=== PATIENT | male | born 1970 | race Caucasian/White ===

== ENCOUNTER 2020-12-12 16:50 | Emergency (ER) | payer OTHER ==
[2020-12-12] MEDS ORDERED: HYDROmorphone 1 MG/ML Syringe IM ONE (17:09)
[2020-12-12] MEDS ORDERED: Cyclobenzaprine 10 MG Tab PO ONE (17:10)
[2020-12-12] MEDS ORDERED: Ketorolac 60 MG/2 ML SDV IM ONE (17:10)
--- NOTE | 2020-12-12 17:14 | EDM.PDOC ---
ED HPI GENERAL MEDICAL PROBLEM - General Chief Complaint: Back Pain or Injury Stated Complaint: BACK PAIN Time Seen by Provider: 12/12/20 16:55 Source of Information: Reports: Patient, Family History Limitations: Reports: No Limitations - History of Present Illness INITIAL COMMENTS - FREE TEXT/NARRATIVE: The patient presents with low back pain. He was golfing and getting into his cart and he developed severe lower back pain. This has happened before. He has no numbness but when he has a spasm he has weakness in his legs. He has no bowel or bladder problems. He has no fever, chills, cough, chest pain, or shortness of breath. Onset: Sudden Duration: Minutes: Location: Reports: Back Quality: Reports: Sharp Severity: Severe Improves with: Reports: Immobilization Worsens with: Reports: Movement Context: Denies: Trauma Associated Symptoms: Reports: No Other Symptoms Back Pain Score (Numeric/FACES): 10 - Related Data Allergies Allergy/AdvReac Type Severity Reaction Status Date / Time No Known Allergies Allergy Verified 12/12/20 17:01 Home Meds: Home Meds Cyclobenzaprine [Flexeril] 10 mg PO TID PRN #20 tab 12/12/20 [Rx] Hydrocodone/Acetaminophen [Hydrocodone-Acetamin 5-325 mg] 1 - 2 each PO Q6H PRN #20 tablet 12/12/20 [Rx] Past Medical History - Past Health History Medical/Surgical History: Denies Medical/Surgical History - Infectious Disease History Infectious Disease History: Reports: Novel Coronavirus Social & Family History - Tobacco Use Tobacco Use Status *Q: Never Tobacco User Second Hand Smoke Exposure: No - Caffeine Use Caffeine Use: Reports: Soda - Recreational Drug Use Recreational Drug Use: No ED ROS GENERAL - Review of Systems Review Of Systems: See Below Constitutional: Reports: No Symptoms HEENT: Reports: No Symptoms Respiratory: Reports: No Symptoms Cardiovascular: Reports: No Symptoms Endocrine: Reports: No Symptoms GI/Abdominal: Reports: No Symptoms : Reports: No Symptoms Musculoskeletal: Reports: Back Pain Neurological: Reports: No Symptoms ED EXAM,LOWER BACK PAIN/INJURY - Physical Exam Exam: See Below Exam Limited By: No Limitations General Appearance: Alert, No Apparent Distress Ears: Normal External Exam Nose: Normal Inspection Head: Atraumatic, Normocephalic Neck: Normal Inspection Respiratory/Chest: No Respiratory Distress, Lungs Clear, Normal Breath Sounds Cardiovascular: Regular Rate, Rhythm, No Edema, No Murmur GI/Abdominal: Soft, Non-Tender, No Organomegaly, No Mass Back Exam: Other (Pain upon palpation to the right lower back) Extremities: Normal Inspection Neurological: No Motor/Sensory Deficits, Oriented x 3 Course - Vital Signs Last Recorded V/S: Last Vital Signs Temp 98.0 F 12/12/20 17:00 Pulse 77 12/12/20 17:00 Resp 20 12/12/20 17:00 BP 167/116 H 12/12/20 17:00 Pulse Ox 98 12/12/20 17:00 - Orders/Labs/Meds Meds: Medications Discontinued Medications Generic Name Dose Route Start Last Admin Trade Name Freq PRN Reason Stop Dose Admin Cyclobenzaprine HCl 10 mg 12/12/20 17:10 12/12/20 17:24 Cyclobenzaprine 10 Mg Tab PO 12/12/20 17:11 10 mg ONETIME ONE Administration Hydromorphone HCl 1 mg 12/12/20 17:09 12/12/20 17:25 Hydromorphone 1 Mg/Ml Syringe IM 12/12/20 17:10 1 mg ONETIME ONE Administration Ketorolac Tromethamine 60 mg 12/12/20 17:10 12/12/20 17:24 Ketorolac 60 Mg/2 Ml Sdv IM 12/12/20 17:11 60 mg ONETIME ONE Administration - Re-Assessments/Exams Free Text/Narrative Re-Assessment/Exam: 12/12/20 17:13 I ordered dilaudid 1mg IM, toradol 60mg IM and flexeril 10mg by mouth. 12/12/20 18:22 He was able to get up in the chair. I will give him a prescription for flexeril and hydrocodone. Departure - Departure Time of Disposition: 18:25 Disposition: Home, Self-Care 01 Condition: Good Clinical Impression: Low back pain Qualifiers: Chronicity: acute Back pain laterality: right Sciatica presence: without sciatica Qualified Code(s): M54.5 - Low back pain - Discharge Information Prescriptions: Cyclobenzaprine [Flexeril] 10 mg PO TID PRN #20 tab PRN Reason: Pain Hydrocodone/Acetaminophen [Hydrocodone-Acetamin 5-325 mg] 1 - 2 each PO Q6H PRN #20 tablet PRN Reason: Pain Referrals: PCP,Not In Area [Primary Care Provider] - Forms: ED Department Discharge Additional Instructions: Ice your back for 15 minutes 3 to 5 times per day for 2 days. Take an antiinflammtory such as motrin or aleve. Take the flexeril 3 times per day as needed for pain. Take the hydrocodone as needed for low back pain. Follow up with your provider this next week. Please return if you are worse. Sepsis Event Note (ED) - Evaluation Sepsis Screening Result: No Definite Risk - Focused Exam Vital Signs: Vital Signs Temp Pulse Resp BP Pulse Ox 12/12/20 17:00 98.0 F 77 20 167/116 H 98
== END 2020-12-12 18:35 | disposition home or self-care (01) ==
LOC: JD.ED 16:50
DX: M54.5 Low back pain (principal); Z86.16 Personal history of COVID-19
CPT/HCPCS: 96372; 99283; A9270; J1170; J1885